=== PATIENT | female | born 1960 | race Caucasian/White ===

== ENCOUNTER 2020-07-18 07:13 | Outpatient (CLI) | payer OTHER | END 2020-07-18 07:21 | disposition home or self-care (01) | LOC: TOM 07:13 | PROVIDERS: ATTEND Internal Medicine Gastroenterology | DX: N83.291 Other ovarian cyst, right side (principal); K57.90 Diverticulosis of intestine, part unspecified, without perforation or abscess without bleeding; K44.9 Diaphragmatic hernia without obstruction or gangrene ==

== ENCOUNTER → 2022-11-26 | Outpatient (CLI) | payer OTHER | END | disposition home or self-care (01) | LOC: NUCLEAR 07:00 | DX: I11.9 Hypertensive heart disease without heart failure (principal) ==

== ENCOUNTER → 2024-08-16 10:00 | Outpatient (CLI) | payer OTHER | END | disposition home or self-care (01) | LOC: NUCLEAR 10:00 | PROVIDERS: ATTEND Internal Medicine | DX: I65.1 Occlusion and stenosis of basilar artery (principal) ==